=== PATIENT | male | born 1965 | race Caucasian/White ===

== ENCOUNTER 2020-03-31 11:56 | Emergency (ER) | payer SELFPAY ==
[~2020-03-31] VITALS: Ht 165.1 cm; Wt 96.6 kg
[~2020-03-31 11:56] MED LIST: LAC PO; LEVAQUIN750 MG PO; METOPROLOL TART25 M1 PO; MYL80 CH; NOR10T PO
[2020-03-31 12:03] VITALS: Ht 165.1 cm; Wt 96.6 kg
[2020-03-31 16:54] VITALS: BP 151/98
== END 2020-03-31 16:54 | disposition home or self-care (01) ==
LOC: ED 11:56
DX: S52.501A Unspecified fracture of the lower end of right radius, initial encounter for closed fracture (principal); W11.XXXA Fall on and from ladder, initial encounter; Y93.89 Activity, other specified; Y92.89 Other specified places as the place of occurrence of the external cause; Y99.8 Other external cause status
CPT/HCPCS: J1885; J2001; J2270